=== PATIENT | male | born 1960 | race Caucasian/White ===

== ENCOUNTER 2018-05-11 06:58 | Day surgery (SDC) | payer MEDICAID ==
[~2018-05-11] VITALS: Ht 175.3 cm; Wt 85.5 kg
[~2018-05-11 06:58] MED LIST: DILT60 PO
[2018-05-11] MEDS ORDERED: PROPOFOL 1% 20 ML VIAL IVP ONE (06:59)
[2018-05-11] MEDS ORDERED: SODIUM CHLORIDE 0.9% 1,000 ML IV ONE ×2 (07:03→08:00)
[2018-05-11] MEDS ORDERED: PANT40TA25 PO (08:26)
[2018-05-11] MEDS ORDERED: HYD25 PO (08:26)
[2018-05-11] MEDS ORDERED: OXYGEN THERAPY IH SCH (20:00)
== END 2018-05-11 11:35 | disposition home or self-care (01) ==
LOC: SURGERY 06:58
PROVIDERS: ATTEND Specialist
DX: R13.10 Dysphagia, unspecified (principal); K21.9 Gastro-esophageal reflux disease without esophagitis; I10 Essential (primary) hypertension; F41.8 Other specified anxiety disorders; F10.21 Alcohol dependence, in remission; G89.29 Other chronic pain; F12.21 Cannabis dependence, in remission; Z86.11 Personal history of tuberculosis; Z90.49 Acquired absence of other specified parts of digestive tract; Z87.891 Personal history of nicotine dependence; Z98.890 Other specified postprocedural states; Z79.899 Other long term (current) drug therapy; Z88.8 Allergy status to other drugs, medicaments and biological substances
CPT/HCPCS: 43249; J2704; J7030